=== PATIENT | male | born 1935 | race Caucasian/White ===

== ENCOUNTER 2017-09-18 08:46 | Emergency (ER) | payer MEDICARE, SELFPAY ==
[2017-09-18 08:50] VITALS: BP 154/74; PULSE 56; RESP 18; O2SAT 99; BMI 28.1
--- NOTE | 2017-09-18 09:26 | ED.SKABFB ---
HPI - Skin/Abscess/Foreign Bdy General Chief complaint: Skin/Abscess/Foreign Body Stated complaint: INFECTION ON ARM Time Seen by Provider: 09/18/17 09:26 Source: patient Mode of arrival: ambulatory Limitations: no limitations History of Present Illness HPI narrative: Patient is a 82-year-old male who presents with a lesion on his left arm. He says the for number of weeks he thinks is infected is now starting to change and grow. It is nonpainful he has been putting Neosporin on it is not going away. It think it is infected or cancer. No history of skin cancer. MD complaint: rash Location: LUE Related Data Previous Rx's Medication Instructions Recorded losartan 50 mg PO QDAY #90 tab 01/13/16 metoprolol tartrate 50 mg PO BID #60 tab 01/19/16 zaleplon 10 mg PO HS #90 cap 09/29/16 Allergies Allergy/AdvReac Type Severity Reaction Status Date / Time No Known Allergies Allergy Uncoded 09/18/17 08:53 Review of Systems Review of Systems GENERAL: Denies chills,fever HEENT: Denies throat pain RESPIRATORY: Denies dyspnea, cough, wheezing CARDIOVASCULAR: Denies chest pain, palpitations GASTROINTESTINAL: Denies nausea, vomiting MUSCULOSKELETAL: Denies extremity pain, injury SKIN: See HPI NEUROLOGIC: Denies weakness, dizziness, headache, numbness 8 point review of systems is negative except for those stated above and HPI [facility] History History of aortic valve replacement Social History Smoking Status: Never smoker Exam Initial Vital Signs Initial Vital Signs: Vital Signs Pulse Rate 56 L 09/18/17 08:50 Respiratory Rate 18 09/18/17 08:50 Blood Pressure 154/74 H 09/18/17 08:50 Pulse Oximetry 99 09/18/17 08:50 GENERAL: Well-appearing, well-nourished and in no acute distress. CARDIOVASCULAR: peripheral pulses in tact, cap refill <2 sec RESPIRATORY: No respiratory distress, speaks in full sentences without difficulty EXTREMITIES: Normal range of motion, no clubbing or edema. Neurovascularly intact NEUROLOGICAL: Cranial nerves II through XII grossly intact. Normal gait and speech. SKIN: Left arm has a pink skin toned raised area 0.5 cm x 0 point 2 5 cm. No gross pus no induration Procedures Abscess I/D Site: upper extremity Side (if applicable): left Local Anesthetic: lidocaine 1% Amount of anesthesia used (mL): 2 Technique: needle aspiration (18g) Amount of fluid expressed (mL): 0 Packing used?: none Complications: bleeding Course Vital Signs - 8 hr 09/18/17 08:50 09/18/17 10:19 Pulse Rate 56 L 57 L Respiratory Rate 18 18 Blood Pressure 154/74 H Blood Pressure [Right Arm] 139/84 H Pulse Oximetry 99 98 MDM - Skin/Abscess/Foreign Bdy MDM Narrative Medical decision making narrative: Does not appear infected, no drainage or pus. More likely the cancer. Strongly recommended he go to [facility]. Discharge Plan Departure Patient Disposition: Home, Self-Care Clinical Impression: Skin abnormalities Discharge Date/Time: 09/18/17 10:20 Interventions: ED Discharge Assessment Last Done: 09/18/17 10:20 Instructions: Skin Cancer -- Overview Activity Restrictions/Additional Instructions: *You have been diagnosed with skin problem *What to do: This does not appear to be an infection. I highly and strongly recommend that he see a [facility]. This is concerning for possible skin cancer. *Continue to take medications as directed *Follow up with your primary care provider in 2-3 days, call [facility] tomorrow to schedule appointment *Return to ER if you should have any new, worsening or concerning symptoms Prescriptions: No Action losartan 50 MG tablet 50 mg PO QDAY Qty: 90 RF: 0 metoprolol tartrate 50 MG tablet 50 mg PO BID Qty: 60 RF: 0 zaleplon 10 MG capsule 10 mg PO HS Qty: 90 RF: 1 Referrals: Paulina Chan MD [Primary Care Provider] - Manuel Bender MD [Non-Staff] -
[2017-09-18 10:19] VITALS: BP 139/84; PULSE 57; RESP 18; O2SAT 98
== END 2017-09-18 10:20 | disposition home or self-care (01) ==
PROVIDERS: Emergency Provider Emergency Medicine; Family Provider Family Medicine; PCP Family Medicine
DX: L98.9 Disorder of the skin and subcutaneous tissue, unspecified (principal)
CPT/HCPCS: 10060; 99282

== ENCOUNTER → 2017-10-13 10:44 | Outpatient (CLI) | payer MEDICARE, SELFPAY ==
--- NOTE | 2017-10-13 | DI.RAD.S_ITS ---
PROCEDURE: XR SHOULDER LT MIN 2V INDICATIONS: LEFT SHOULDER PAIN TECHNIQUE: 3 views of the shoulder were acquired. COMPARISON: [facility], , CHEST 2 VIEW, 06/20/2013, 11:33. FINDINGS: Bones: Mildly displaced fracture of distal end of the clavicle. No additional fractures seen. Degenerative glenohumeral joint disease. Degenerative changes at the coracoclavicular junction. No suspicious bony lesions. Visualized ribs appear intact. Median sternotomy and CABG partially visualized. Soft tissues: Linear calcification overlies the humeral head. IMPRESSION: 1. Fracture distal end of the left clavicle is not well seen because of overlying scapula. Angled views of the clavicle may be helpful. 2. Osteoarthritis glenohumeral joint. 3. Calcific tendinopathy. Dictated by: Fredy Dutton M.D. on 10/13/2017 at 12:07 Approved by: Fredy Dutton M.D. on 10/13/2017 at 12:11
== END ==
PROVIDERS: Family Provider Family Medicine; PCP Family Medicine; Visit Provider Family Medicine
DX: S42.032A Displaced fracture of lateral end of left clavicle, initial encounter for closed fracture (principal); M19.012 Primary osteoarthritis, left shoulder; M75.32 Calcific tendinitis of left shoulder; Z95.1 Presence of aortocoronary bypass graft
CPT/HCPCS: 73030

== ENCOUNTER → 2018-02-08 13:41 | Outpatient (CLI) | payer MEDICARE, SELFPAY ==
--- NOTE | 2018-02-08 | DI.RAD.S_ITS ---
PROCEDURE: XR THORACIC SPINE 3V INDICATIONS: right side low back pain and sciatica TECHNIQUE: 3 views of the thoracic spine were acquired. COMPARISON: None. FINDINGS: Bones: No fractures or dislocations. No suspicious bony lesions. 12 pairs of ribs are noted, and appear intact where visualized. Moderate degenerative disc disease without compression fracture along the thoracic spine Soft tissues: No paravertebral stripe thickening. Prior sternotomy wires and heart valve replacement IMPRESSION: Moderate thoracic spine degenerative disc disease, but no fracture found. Dictated by: Gonzalo Matt M.D. on 02/08/2018 at 14:11 Approved by: Gonzalo Matt M.D. on 02/08/2018 at 14:13
--- NOTE | 2018-02-08 | DI.RAD.S_ITS ---
PROCEDURE: XR LUMBAR SPINE 2-3V INDICATIONS: right sided low back pain and right sided sciatica TECHNIQUE: 3 views of the lumbar spine were acquired. COMPARISON: None. FINDINGS: Bones: 5 [id number] vertebrae are present. There is levoscoliotic bony alignment centered at L4. No vertebral body compression fractures. No suspicious bony lesions. There is moderately severe degenerative disc disease at L4-5 and L5-S1 with facet osteoarthritis there is prominent bilaterally. Spinal and foraminal stenosis likely are associated Soft tissues: Overlying bowel gas pattern is normal. No suspicious soft tissue calcifications. IMPRESSION: Scoliosis and lower lumbosacral spine degenerative disc disease and facet osteoarthritis to the degree that significant spinal and foraminal stenosis is likely present. No compression fracture found. Dictated by: Gonzalo Matt M.D. on 02/08/2018 at 14:09 Approved by: Gonzalo Matt M.D. on 02/08/2018 at 14:10
== END ==
PROVIDERS: Visit Provider Family Medicine
DX: M47.27 Other spondylosis with radiculopathy, lumbosacral region (principal); M51.17 Intervertebral disc disorders with radiculopathy, lumbosacral region; M41.86 Other forms of scoliosis, lumbar region; G89.29 Other chronic pain
CPT/HCPCS: 72072; 72100